=== PATIENT | female | born 1945 | race Caucasian/White ===

== ENCOUNTER → 2017-02-17 10:23 | Outpatient (CLI) | payer MEDICARE, OTHER ==
[2014-06-30 06:30] VITALS: BMI 21.4
[~2017-02-17 10:23] MED LIST: ASPIRIN EC81 M1 PO; CO Q-10100 MG PO; FISH OIL 1,2001 CA1 PO; FOLBEE PLUS TAB1 TAB PO; HYDROCODONE-APA1 TAB PO; HYZAAR 100-25 T1 TAB PO; NIACIN250 M1 PO; NORVASC5 MG PO; RED YEAST RICE600 MG PO; SINGULAIR10 MG PO; SPIRIVA18 MCG INH; TOPROL XL50 MG PO; TRIBENZOR 20-51 EACH PO; VITAMIN D31000 UNIT PO; WELLBUTRIN XL150 M1 PO
== END | disposition home or self-care (01) ==
LOC: D.MAMMO 10:23
DX: Z12.31 Encounter for screening mammogram for malignant neoplasm of breast (principal)

== ENCOUNTER 2017-09-30 14:13 | Inpatient (IN) | payer MEDICARE, OTHER ==
[~2017-09-30] VITALS: Ht 157.5 cm; Wt 55.8 kg
[2017-09-30 15:04] LABS: BASOPHILS 0.3 % (0-2); EOSINOPHILS 0.3 % (0-7); HEMATOCRIT 27.4 % (36.0-48.0); HEMOGLOBIN 10.2 g/dL (12-16); IMMATURE GRANULOCYTES 1.3 % (0-5); LYMPHOCYTES 9.7 % (15-50); MCH 36.8 pg (26.0-34.0); MCHC 37.2 g/dL (31.0-37.0); MCV 98.9 fL (80.0-100.0); MEAN PLATELET VOLUME 9.8 fL (7.4-10.4); MONOCYTES 11.9 % (2-11); NEUTROPHILS 76.5 % (40-80); RBC 2.77 10x6/uL (4.00-5.40); RDW 13.3 % (11.5-14.5); WBC 9.8 10x3/uL (4.8-10.8)
[2017-09-30 15:06] LABS: PLATELET COUNT 207 10x3/uL (130-400)
[2017-09-30 15:31] LABS: ALBUMIN 2.3 g/dL (3.4-5.0); ANION GAP 10.8 mmol/L (8-16); BILIRUBIN - TOTAL 0.55 mg/dL (0.2-1.3); CALCIUM 9.1 mg/dL (8.5-10.1); CARBON DIOXIDE 27.2 mmol/L (21.0-32.0); CREATININE - SERUM 1.4 mg/dL (0.6-1.3); PROTEIN - SERUM 7.2 g/dL (6.4-8.2)
[2017-09-30 20:00] VITALS: BP 115/58
[2017-09-30] MEDS ORDERED: CIPRO500 MG PO (22:26)
[2017-09-30] MEDS ORDERED: PROTONIX40 MG PO (22:26)
[2017-09-30] MEDS ORDERED: KENALOG 0.1 % 115 GM TOPICAL (22:27)
[2017-09-30] MEDS ORDERED: ZANTAC150 MG PO (22:27)
[2017-09-30 22:54] VITALS: BP 112/63; BMI 22.0
[2017-10-01] VITALS: BP 111/55
[2017-10-01 05:08] LABS: BASOPHILS 0.2 % (0-2); EOSINOPHILS 0.3 % (0-7); HEMATOCRIT 24.4 % (36.0-48.0); HEMOGLOBIN 8.9 g/dL (12-16); IMMATURE GRANULOCYTES 1.7 % (0-5); MCH 35.9 pg (26.0-34.0); MCHC 36.5 g/dL (31.0-37.0); MCV 98.4 fL (80.0-100.0); MEAN PLATELET VOLUME 9.6 fL (7.4-10.4); MONOCYTES 11.5 % (2-11); NEUTROPHILS 73.3 % (40-80); PLATELET COUNT 229 10x3/uL (130-400); RBC 2.48 10x6/uL (4.00-5.40); RDW 13.5 % (11.5-14.5); WBC 8.9 10x3/uL (4.8-10.8)
[2017-10-01 05:10] LABS: ANION GAP 12.1 mmol/L (8-16); CALCIUM 8.7 mg/dL (8.5-10.1); CARBON DIOXIDE 23.3 mmol/L (21.0-32.0); CREATININE - SERUM 1.2 mg/dL (0.6-1.3); POTASSIUM - SERUM 3.4 mmol/L (3.5-5.1)
[2017-10-01 08:05] VITALS: BP 98/49
[2017-10-01 11:49] VITALS: BP 117/50
[2017-10-01 16:05] VITALS: BP 129/64
[2017-10-01 17:27] LABS: CALCIUM 8.6 mg/dL (8.5-10.1); CARBON DIOXIDE 22.8 mmol/L (21.0-32.0); CREATININE - SERUM 1.3 mg/dL (0.6-1.3); POTASSIUM - SERUM 4.8 mmol/L (3.5-5.1)
[2017-10-01 19:54] VITALS: BP 130/62
[2017-10-02 01:30] VITALS: BP 137/58
[2017-10-02 05:58] LABS: BASOPHILS 0.1 % (0-2); EOSINOPHILS 0.3 % (0-7); HEMATOCRIT 24.4 % (36.0-48.0); HEMOGLOBIN 8.6 g/dL (12-16); IMMATURE GRANULOCYTES 1.8 % (0-5); LYMPHOCYTES 8.7 % (15-50); MCH 35.7 pg (26.0-34.0); MCHC 35.2 g/dL (31.0-37.0); MEAN PLATELET VOLUME 9.3 fL (7.4-10.4); MONOCYTES 7.4 % (2-11); NEUTROPHILS 81.7 % (40-80); PLATELET COUNT 252 10x3/uL (130-400); RBC 2.41 10x6/uL (4.00-5.40); RDW 13.8 % (11.5-14.5)
[2017-10-02 06:03] LABS: MCV 101.2 fL (80.0-100.0); WBC 11.5 10x3/uL (4.8-10.8)
[2017-10-02 06:15] LABS: ANION GAP 13.6 mmol/L (8-16); BILIRUBIN - TOTAL 0.39 mg/dL (0.2-1.3); CALCIUM 8.5 mg/dL (8.5-10.1); CARBON DIOXIDE 21.2 mmol/L (21.0-32.0); CREATININE - SERUM 1.2 mg/dL (0.6-1.3); POTASSIUM - SERUM 4.8 mmol/L (3.5-5.1); PROTEIN - SERUM 6.2 g/dL (6.4-8.2)
[2017-10-02 07:54] VITALS: BP 134/89
[2017-10-02 09:57] VITALS: Ht 157.5 cm; Wt 55.8 kg
[2017-10-02 11:53] VITALS: BP 125/56
[2017-10-02] MEDS ORDERED: K-DUR20 MEQ PO (12:16)
== END 2017-10-02 14:23 | disposition home or self-care (01) | DRG 641 ==
LOC: D.ER 14:13 → D.M2 17:00 → D.EDHOLD 17:00 → OBSVTIME 17:01 → D.M2 18:52
PROVIDERS: Emergency Medicine; Family Medicine
DX: E87.1 Hypo-osmolality and hyponatremia (principal); E87.6 Hypokalemia; E78.5 Hyperlipidemia, unspecified; I10 Essential (primary) hypertension; I25.10 Atherosclerotic heart disease of native coronary artery without angina pectoris; Z95.5 Presence of coronary angioplasty implant and graft; Z72.0 Tobacco use; D64.9 Anemia, unspecified

== ENCOUNTER → 2019-03-30 08:49 | Outpatient (CLI) | payer MEDICARE, OTHER ==
[2017-10-02 09:57] VITALS: BMI 22.5
[~2019-03-30 08:49] MED LIST changes: +CIPRO500 MG PO; +K-DUR20 MEQ PO; +KENALOG 0.1 % 115 GM TOPICAL; +PROTONIX40 MG PO; +ZANTAC150 MG PO
[2019-03-30 10:27] LABS: BILIRUBIN - DIRECT 0.09 mg/dL (0.00-0.30); BILIRUBIN - INDIRECT 0.27 mg/dL (0.00-1.00); BILIRUBIN - TOTAL 0.36 mg/dL (0.2-1.3); PROTEIN - SERUM 7.6 g/dL (6.4-8.2)
== END | disposition home or self-care (01) ==
LOC: D.MRI 08:49
PROVIDERS: ATTEND Internal Medicine Gastroenterology
DX: R93.89 Abnormal findings on diagnostic imaging of other specified body structures (principal)

== ENCOUNTER → 2019-05-27 15:23 | Outpatient (CLI) | payer MEDICARE, OTHER ==
[2017-10-02 09:57] VITALS: BMI 22.5
== END | disposition home or self-care (01) ==
LOC: D.LABREF 15:23
PROVIDERS: ATTEND Urology
DX: N39.0 Urinary tract infection, site not specified (principal)

== ENCOUNTER → 2019-06-06 09:05 | Outpatient (CLI) | payer MEDICARE, OTHER ==
[2017-10-02 09:57] VITALS: BMI 22.5
== END | disposition home or self-care (01) ==
LOC: D.CT 09:05
PROVIDERS: ATTEND Urology
DX: N13.30 Unspecified hydronephrosis (principal)

== ENCOUNTER → 2019-06-10 08:56 | Outpatient (CLI) | payer MEDICARE, OTHER ==
[2017-10-02 09:57] VITALS: BMI 22.5
[~2019-06-10 08:56] MED LIST changes: +AMOXICILLIN500 M1 PO; +HYDROCODON-ACE1 EAC7 PO
== END | disposition home or self-care (01) ==
LOC: D.NM 08:56
PROVIDERS: ATTEND Urology
DX: N13.30 Unspecified hydronephrosis (principal)

== ENCOUNTER → 2019-06-13 17:45 | Outpatient (CLI) | payer MEDICARE, OTHER ==
[2017-10-02 09:57] VITALS: BMI 22.5
== END | disposition home or self-care (01) ==
LOC: D.LABREF 17:45
PROVIDERS: ATTEND Urology
DX: R82.90 Unspecified abnormal findings in urine (principal)

== ENCOUNTER → 2019-07-08 10:05 | Outpatient (CLI) | payer MEDICARE, OTHER ==
[2019-06-23 09:57] VITALS: BMI 19.2
[~2019-07-08 10:05] MED LIST changes: +KEFLEX500 MG PO
== END | disposition home or self-care (01) ==
LOC: D.RAD 07-07 11:00
PROVIDERS: ATTEND Urology
DX: N20.0 Calculus of kidney (principal)

== ENCOUNTER 2019-11-24 08:00 | Outpatient (CLI) | payer MEDICARE, OTHER ==
[2019-06-23 09:57] VITALS: BMI 19.2
== END 2019-11-24 23:59 | disposition home or self-care (01) ==
LOC: D.MAMMO 08:00
PROVIDERS: ATTEND Clinical Nurse Specialist Family Health
DX: Z12.31 Encounter for screening mammogram for malignant neoplasm of breast (principal)

== ENCOUNTER 2019-12-05 11:00 | Outpatient (CLI) | payer MEDICARE, OTHER ==
[2019-06-23 09:57] VITALS: BMI 19.2
== END 2019-12-05 12:00 | disposition home or self-care (01) ==
LOC: D.MAMMO 11:00
PROVIDERS: ATTEND Clinical Nurse Specialist Family Health
DX: R92.8 Other abnormal and inconclusive findings on diagnostic imaging of breast (principal)